=== PATIENT | male | born 1995 | race Caucasian/White ===

== ENCOUNTER 2018-06-23 01:45 | Emergency (ER) | payer OTHER ==
--- NOTE | 2018-06-23 01:49 | ER Report ---
History and Physical Time Seen By MD: 01:49 HPI/ROS CHIEF COMPLAINT: Right hand injury HISTORY OF PRESENT ILLNESS: 22-year-old male, performing a karate trick punched a sign with his right hand. He thinks he may have sustained a boxer's fracture to his right small finger. She has a previous history of the base of the 5th finger fracture from punching immovable objects in the past. She admits to alcohol ingestion. Allergies: Coded Allergies: No Known Drug Allergies (Unverified , 06/23/18) Home Meds No Active Prescriptions or Reported Meds Reviewed Nurses Notes: Yes Old Medical Records Reviewed: Yes Hx Substance Use Disorder: No Constitutional Vital Sign - Last 24 Hours 06/23/18 01:50 Temp 98.2 Pulse 117 Resp 15 B/P (MAP) 139/95 Pulse Ox 93 O2 Delivery Room Air Physical Exam General appearance: Alert no distress. Respiratory: Chest is non tender, lungs are clear to auscultation. Cardiac: Regular rate and rhythm Extremities: Examination of the right hand reveals angulation and swelling in the distal aspect of the 5th metacarpal of the right hand. All digits are neurovascularly intact. DIFFERENTIAL DIAGNOSIS: After history and physical exam differential diagnosis was considered for sprain, strain, fracture, dislocation, contusion. Medical Decision Making EKG/Imaging Imaging X-ray: Three-view's right hand was obtained. I viewed the images myself on the PACS system. My interpretation of the images is: There is an angulated distal 5th metacarpal fracture consistent with a boxer's fracture noted.. The radiologist interpretation had no clinically significant variation from this interpretation. ED Course/Re-evaluation ED Course Patient was admitted to an examination room. H&P was done. The differential diagnoses was considered. On clinical examination, patient appears to have a boxer's fracture. Diagnostic x-rays are ordered to confirm it. The x-rays do indeed show a boxer's fracture. Patient's placed in a gutter splint. He is advised to follow-up with orthopedics. Patient reports that he had his previous fracture pinned 18 months ago. Decision to Disposition Date: Jun 23, 2018 Decision to Disposition Time: 02:26 Depart Departure Latest Vital Signs Vital Signs Date Time Temp Pulse Resp B/P (MAP) Pulse Ox O2 Delivery O2 Flow Rate FiO2 11/17/18 01:50 98.2 117 15 139/95 93 Room Air Impression: Primary Impression: Fracture of fifth metacarpal bone of right hand Condition: Improved Disposition: HOME OR SELF-CARE Referrals: DEE VASQUEZ MD New Scripts No Active Prescriptions or Reported Meds Patient Instructions: Hand Fracture (ED) Additional Instructions: Take ibuprofen 200 mg 3 tablets 3 times a day for pain relief Follow-up with [facility] Dr. Vasquez information was provided Problem Qualifiers Primary Impression: Fracture of fifth metacarpal bone of right hand Encounter type: initial encounter Fracture type: closed Metacarpal location: shaft Fracture alignment: displaced Qualified Codes: S62.326A - Displaced fracture of shaft of fifth metacarpal bone, right hand, initial encounter for closed fracture YOLANDA LEO DO Jun 23, 2018 01:49
[2018-06-23 01:50] VITALS: BP 139/95
--- NOTE | 2018-06-23 02:42 | RADIOLOGY IMAGING REPORT ---
FACILITY: [facility] PATIENT NAME: Gustabo Huerta : 1995 MR: [id number] V: [id number] EXAM DATE: ORDERING PHYSICIAN: YOLANDA LEO TECHNOLOGIST: Location: [facility] - [place] Patient: Gustabo Huerta : 1995 Visit/Account:[id number] Date of Sevice: 06/23/2018 HAND COMPLETE RIGHT HISTORY: Punched a wall. Fifth metacarpal pain. COMPARISON: 12/04/2016. TECHNIQUE: PA, oblique, and lateral views of the right hand. FINDINGS: There is an oblique fracture through the fifth metacarpal neck with slight palmar step-off of the distal fracture fragment. There is associated soft tissue swelling. There is a healed fracture of the fifth metacarpal base. IMPRESSION: 1. Fifth metacarpal neck fracture with associated soft tissue swelling. Report Dictated By: Dionne Berrios at 06/23/2018 2:34 AM Report E-Signed By: Dionne Berrios at 06/23/2018 2:38 AM WSN:[id number]
== END 2018-06-23 02:49 | disposition home or self-care (01) ==
LOC: ER 01:59
DX: S62.326A Displaced fracture of shaft of fifth metacarpal bone, right hand, initial encounter for closed fracture (principal)
CPT/HCPCS: 29125; 73130; 99283; A4565

== ENCOUNTER 2018-10-14 23:59 | Emergency (ER) | payer OTHER ==
--- NOTE | 2018-10-15 00:15 | ER Report ---
History and Physical Time Seen By MD: 00:15 Hx. of Stated Complaint: patient states he feels like he is having a hard time catching his breath, feel like his heart rate is elevated. patient states was lying in bed when symptoms came on. HPI/ROS CHIEF COMPLAINT: short of breath and racing heart HISTORY OF PRESENT ILLNESS: This is a 23 year old male. Was laying down tonight. Had racing heart and felt short of breath. Chest tight feeling. Some tingling in both arms which is gone now. Has had a few past episodes similar with racing heart. No triggers known, no work-up in past. No fevers or recent illness. Had cold about 1 month ago, resolved. No cough at this time. No nausea or vomiting. No history of lung or heart problems. No drugs. One beer with dinner tonight, drinks about 1 drink a week. No unusual activities today. Allergies: Coded Allergies: lactose (Verified Allergy, Intermediate, flatulance, 10/15/18) Home Meds No Active Prescriptions or Reported Meds Reviewed Nurses Notes: Yes Hx Substance Use Disorder: No Constitutional Vital Sign - Last 24 Hours 10/15/18 10/15/18 10/15/18 10/15/18 00:05 00:30 00:59 01:00 Temp 97.9 Pulse 108 83 Resp 20 B/P (MAP) 166/98 137/91 (106) 133/89 (104) Pulse Ox 95 94 O2 Delivery Room Air 10/15/18 10/15/18 01:29 01:30 Pulse 87 B/P (MAP) 142/81 (101) Pulse Ox 92 Physical Exam General Appearance: The patient is alert. No acute distress. Eyes: Pupils are equal, round. No pallor, injection or icterus. ENT: Mucous membranes are moist. Normal oral mucosa. Posterior oropharynx is normal. Neck: Supple and non tender. No lymphadenopathy. Respiratory: Lungs are clear to auscultation. Cardiovascular: Regular rate and rhythm. No murmurs, gallops or rubs. Normal capillary refill. No edema. Gastrointestinal: Abdomen is soft and non tender. Nondistended. Normal active bowel sounds. Neurological: Alert and oriented x3. No focal neurologic deficits Skin: Warm and dry. DIFFERENTIAL DIAGNOSIS: After history and physical exam, differential diagnosis was considered for shortness of breath and palpitations including but not limited to myocardial ischemia, pulmonary embolus, chest wall pain, pleural inflammation and pulmonary infectious causes. Medical Decision Making Data Points Result Diagram: 10/15/18 0013 10/15/18 0013 Laboratory Hematology Test 10/15/18 00:13 Red Blood Count 5.24 M/uL (4.00-5.60) Mean Corpuscular Volume 91.4 fL (80.0-96.0) Mean Corpuscular Hemoglobin 31.5 pg (26.0-33.0) Mean Corpuscular Hemoglobin Concent 34.5 g/dL (32.0-36.0) Red Cell Distribution Width 12.7 % (11.5-14.5) Mean Platelet Volume 6.8 fL (7.2-11.1) Neutrophils (%) (Auto) 53.7 % (39.4-72.5) Lymphocytes (%) (Auto) 31.6 % (17.6-49.6) Monocytes (%) (Auto) 10.3 % (4.1-12.4) Eosinophils (%) (Auto) 3.5 % (0.4-6.7) Basophils (%) (Auto) 0.9 % (0.3-1.4) Nucleated RBC Relative Count (auto) 0.1 /100WBC Neutrophils # (Auto) 4.6 K/uL (2.0-7.4) Lymphocytes # (Auto) 2.7 K/uL (1.3-3.6) Monocytes # (Auto) 0.9 K/uL (0.3-1.0) Eosinophils # (Auto) 0.3 K/uL (0.0-0.5) Basophils # (Auto) 0.1 K/uL (0.0-0.1) Nucleated RBC Absolute Count (auto) 0.01 K/uL D-Dimer Quantitative (PE/DVT) 0.32 ug/ml (0-0.50) Sodium Level 139 mmol/L (137-145) Potassium Level 3.6 mmol/L (3.5-5.0) Chloride Level 102 mmol/L (98-107) Carbon Dioxide Level 23 mmol/L (22-30) Blood Urea Nitrogen 11 mg/dl (9-21) Creatinine 0.70 mg/dl (0.66-1.25) Glomerular Filtration Rate Calc > 60.0 Random Glucose 113 mg/dl (75-110) Calcium Level 9.4 mg/dl (8.4-10.2) Total Bilirubin 0.4 mg/dl (0.2-1.3) Aspartate Amino Transf (AST/SGOT) 132 U/L (0-35) Alanine Aminotransferase (ALT/SGPT) 301 U/L (0-56) Alkaline Phosphatase 88 U/L (0-126) Troponin I < 0.012 ng/ml Total Protein 8.4 g/dl (6.3-8.2) Albumin 4.9 g/dl (3.5-5.0) Chemistry Test 10/15/18 00:13 White Blood Count 8.6 k/uL (4.5-11.0) Red Blood Count 5.24 M/uL (4.00-5.60) Hemoglobin 16.5 g/dL (14.0-18.0) Hematocrit 47.9 % (42.0-52.0) Mean Corpuscular Volume 91.4 fL (80.0-96.0) Mean Corpuscular Hemoglobin 31.5 pg (26.0-33.0) Mean Corpuscular Hemoglobin Concent 34.5 g/dL (32.0-36.0) Red Cell Distribution Width 12.7 % (11.5-14.5) Platelet Count 332 K/uL (150-450) Mean Platelet Volume 6.8 fL (7.2-11.1) Neutrophils (%) (Auto) 53.7 % (39.4-72.5) Lymphocytes (%) (Auto) 31.6 % (17.6-49.6) Monocytes (%) (Auto) 10.3 % (4.1-12.4) Eosinophils (%) (Auto) 3.5 % (0.4-6.7) Basophils (%) (Auto) 0.9 % (0.3-1.4) Nucleated RBC Relative Count (auto) 0.1 /100WBC Neutrophils # (Auto) 4.6 K/uL (2.0-7.4) Lymphocytes # (Auto) 2.7 K/uL (1.3-3.6) Monocytes # (Auto) 0.9 K/uL (0.3-1.0) Eosinophils # (Auto) 0.3 K/uL (0.0-0.5) Basophils # (Auto) 0.1 K/uL (0.0-0.1) Nucleated RBC Absolute Count (auto) 0.01 K/uL D-Dimer Quantitative (PE/DVT) 0.32 ug/ml (0-0.50) Glomerular Filtration Rate Calc > 60.0 Calcium Level 9.4 mg/dl (8.4-10.2) Total Bilirubin 0.4 mg/dl (0.2-1.3) Aspartate Amino Transf (AST/SGOT) 132 U/L (0-35) Alanine Aminotransferase (ALT/SGPT) 301 U/L (0-56) Alkaline Phosphatase 88 U/L (0-126) Troponin I < 0.012 ng/ml Total Protein 8.4 g/dl (6.3-8.2) Albumin 4.9 g/dl (3.5-5.0) Coagulation Test 10/15/18 00:13 D-Dimer Quantitative (PE/DVT) 0.32 ug/ml EKG/Imaging EKG Interpretation 12 lead EKG: Rhythm: Normal sinus rhythm, rate 95 [place]: normal QRS: normal ST segments: normal Imaging TWO VIEW CHEST 10/15/2018 12:28 AM. INDICATION: Shortness of breath. COMPARISON: None. FINDINGS: Lungs are well-expanded. The lungs are clear. No pneumothorax or pleural effusion. Heart size is normal. IMPRESSION: Normal. Report Dictated By: Rickie Lemon MD at 10/15/2018 1:07 AM ED Course/Re-evaluation Clinical Indication for ER IV: Hydration, IV Access ED Course Labs, EKG, and chest x-ray unremarkable. Normal rhythm on heart monitor. Reviewed all this with the patient. Recommended Holter monitor and then follow up with primary care or cardiology for further evaluation Decision to Disposition Date: Oct 15, 2018 Decision to Disposition Time: 01:23 Depart Departure Latest Vital Signs Vital Signs Date Time Temp Pulse Resp B/P (MAP) Pulse Ox O2 Delivery O2 Flow Rate FiO2 10/15/18 01:30 142/81 (101) 10/15/18 01:29 87 92 10/15/18 00:05 97.9 20 Room Air Impression: Primary Impression: Palpitations Condition: Improved Disposition: HOME OR SELF-CARE New Scripts No Active Prescriptions or Reported Meds Patient Instructions: Palpitations (ED) Additional Instructions: We did not find a definitive cause for your racing heart and short of breath feeling tonight. We are having you do a Holter monitor for 48 hours. We recommend follow-up with primary care provider or pr internship for further evaluation. We recommend avoiding any stimulants (coffee, caffeine, chocolate, energy supplements) until further evaluation. AUDRA TSAI MD Oct 15, 2018 00:15
[2018-10-15 00:39] LABS: PLATELET COUNT, AUTOMATED 332 K/uL (150-450)
--- NOTE | 2018-10-15 00:44 | EKG ---
FACILITY: [facility] - [place] PATIENT NAME: MARIO VALENCIA : [id number] MR: [id number] V: [id number] EXAM DATE: ORDERING PHYSICIAN: AUDRA TSAI TECHNOLOGIST: AIDA Dai Reason : Blood Pressure : / mmHG Vent. Rate : 095 BPM Atrial Rate : 095 BPM P-R Int : 160 ms QRS Dur : 086 ms QT Int : 372 ms P-R-T Axes : 051 051 030 degrees QTc Int : 467 ms Normal sinus rhythm Nonspecific T wave abnormality Prolonged QT Abnormal ECG No previous ECGs available Confirmed by IRENE ARGUETA ([id number]) on 10/15/2018 2:09:14 AM Referred By: Confirmed By:IRENE ARGUETA
--- NOTE | 2018-10-15 01:13 | RADIOLOGY IMAGING REPORT ---
FACILITY: [facility] - [place] PATIENT NAME: Gustabo Huerta : 1995 MR: [id number] V: [id number] EXAM DATE: ORDERING PHYSICIAN: AUDRA TSAI TECHNOLOGIST: Location: [facility] Patient: Gustabo Huerta : 1995 Visit/Account:[id number] Date of Sevice: 10/15/2018 TWO VIEW CHEST 10/15/2018 12:28 AM. INDICATION: Shortness of breath. COMPARISON: None. FINDINGS: Lungs are well-expanded. The lungs are clear. No pneumothorax or pleural effusion. Heart size is normal. IMPRESSION: Normal. Report Dictated By: Rickie Lemon MD at 10/15/2018 1:07 AM Report E-Signed By: Rickie Lemon MD at 10/15/2018 1:08 AM WSN:[id number]
[2018-10-15 01:30] VITALS: BP 142/81
--- NOTE | 2018-10-17 12:56 | RT HOLTER TEST ---
FACILITY: [facility] PATIENT NAME: MARIO VALENCIA : [id number] MR: [id number] V: [id number] EXAM DATE: ORDERING PHYSICIAN: AUDRA TSAI TECHNOLOGIST: MARTHA Hook-up date: 2018-10-15 00:52:00 Duration: 47:59:00 Test Indications: N/A Medications: N/A [id number] QRS complexes 8 Ventricular ectopics which represent <1 % of total QRS comp. 1 Supraventricular ectopics which represent <1 % of total QRS comp. * Paced QRS complexes which represent % of total QRS comp. VENTRICULAR ECTOPY 8 Isolated 0 Bigeminal Cycles 0 Couplets 0 Runs 0 Beats in Runs * Beats LONGEST at * BPM at :: -- * Beats FASTEST at * BPM at :: -- SUPRAVENTRICULAR ECTOPY 1 Isolated 0 Couplets 0 Runs 0 Beats in Runs * Beats LONGEST at * BPM at :: -- * Beats FASTEST at * BPM at :: -- HEART RATES 41 MIN at 17:20:33 2018-10-15 87 AVG 168 MAX at 21:59:00 2018-10-16 LONGEST RR 1.656 secs at 04:54:08 2018-10-16 S-T LEVELS Channel 1 -12.800 mm MIN at 00:52:00 2018-10-15.800 mm MAX at 00:52:00 2018-10-15 Channel 2 -12.800 mm MIN at 00:52:00 2018-10-15.800 mm MAX at 00:52:00 2018-10-15 Channel 3 -12.800 mm MIN at 00:52:00 2018-10-15.800 mm MAX at 00:52:00 2018-10-15 Sinus rhythm with 2nd degree SA block (Mobitz I) Premature ventricular complexes Nonspecific T wave abnormality Confirmed by IRENE ARGUETA ([id number]) on 10/17/2018 12:56:26 PM Referred By: Overread By: IRENE ARGUETA
== END 2018-10-15 02:09 | disposition home or self-care (01) ==
LOC: ER 10-15 00:16
DX: R00.2 Palpitations (principal)
CPT/HCPCS: 71046; 82040; 82247; 82310; 82374; 82435; 82565; 82947; 84075; 84132; 84155; 84295; 84450; 84460; 84484; 84520; 85025; 85379; 93005; 93225; 99284

== ENCOUNTER → 2019-02-12 | Outpatient (CLI) | payer OTHER ==
[~2019-02-12] MED LIST: GADOBENATE 529MG/1ML 15ML VIAL IVP ONE
--- NOTE | 2019-02-12 16:33 | RADIOLOGY IMAGING REPORT ---
[facility] PATIENT NAME: Gustabo Huerta : 1995 MR: [id number] V: [id number] EXAM DATE: ORDERING PHYSICIAN: CORINA ZHU TECHNOLOGIST: Location: [facility] - [place] Patient: Gustabo Huerta : 1995 Visit/Account:[id number] Date of Sevice: 02/12/2019 EXAMINATION: MRI Brain without intravenous contrast MRI Brain with intravenous contrast HISTORY: Headache. Memory changes. Cognitive impairment. COMPARISON: Noncontrast head CT dated 11/01/1995. TECHNIQUE: Multi-planar, multi-sequence brain MRI was performed before and after IV gadolinium. CONTRAST: 15 mL of IV MultiHance FINDINGS: Brain volume: Normal. Sagittal midline structures: Negative. Ventricles: Negative. Acute ischemic changes: None. Hemorrhage: None. Masses / edema: None. Enhancement: Negative. Alatorre-white: Negative. White matter: Negative. Vessels: Negative. Extra-axial: Negative. Calvarium / scalp: Negative. Skull base: Negative. Visualized sinuses / orbits: Negative. Visualized upper neck: Negative. IMPRESSION: Normal brain MRI without and with IV contrast. Report Dictated By: El Gomes MD at 02/12/2019 4:21 PM Report E-Signed By: El Gomes MD at 02/12/2019 4:26 PM WSN:[id number]
== END ==
LOC: MRI 00:50
PROVIDERS: ATTEND Psychiatry & Neurology Neurology
DX: R41.89 Other symptoms and signs involving cognitive functions and awareness (principal)
CPT/HCPCS: 70553; A9577